=== PATIENT | female | born 1990 | race Caucasian/White ===

== ENCOUNTER → 2016-06-19 | Outpatient (CLI) | payer OTHER ==
--- NOTE | 2016-06-21 08:25 | DX ---
Bone Densitometry Indication: Screen for osteoporosis. History of Depo-Provera use and Coumadin use. Technique: DEXA scan was performed on [employer] W Bone Densitometer. Comparison Study: None. Results: Lumbar Spine (L1-L4) BMD: 0.821 Z-score: -1.9 Total Hip (Right) BMD: 0.756 Z-score: -1.5 Femoral Neck (Right) BMD: 0.680 Z-score: -1.5 Total Hip (Left) BMD: 0.766 Z-score: -1.4 Femoral Neck (Left) BMD: 0.711 Z-score: -1.2 Conclusion: Osteopenia or low bone density. Due to the patient's age, FRAX score could not be calcul ated. Additional Comment: Consider repeating this study as clinically indicated. NOTE: The risk of osteoporotic fracture increases approximately two-fold for each 1.0 SD decrease in T-score. The T-score represents the standard deviations from a young normal, same sex, reference po pulation. Low bone density is not the only risk factor for fracture. Clinical factors to consider include fall risk, previous osteoporotic fracture, family history of fractures, smoking, and low body weight. Patients who have an unexpectedly low BMD may need to be evaluated for secondary causes of low bone m ineral density. In comparing the present study to a prior study, lack of a significant increase or decrease in BMD ma y signify efficacy of the patient's present treatment. Bone mineral density measurements performed with densitometers produced by different manufacturers ar e not comparable. For the most reproducible BMD measurement, subsequent exams should be performed on the same densitometer.
== END ==
LOC: BMCIMAGING 13:57
PROVIDERS: ATTEND Internal Medicine
DX: Z13.820 Encounter for screening for osteoporosis (principal); M85.80 Other specified disorders of bone density and structure, unspecified site